=== PATIENT | female | born 1955 | race Caucasian/White ===

== ENCOUNTER → 2019-04-27 | Outpatient (CLI) | payer MEDICARE ==
--- NOTE | 2019-05-06 12:06 | PATH ---
[address] [address] PATHOLOGY RPT PROCEDURE Name: MARIO RASHID Room: [facility].#: [id number] Admission: 04/27/19 Date of : 51 Discharge: Report #: [id number] Path Case #: [id number] [facility] Accession Number: [id number] . 01 Material submitted: . PART A: breast - LEFT BREAST, 3:00, 1CMFN. Modifiers: left, 3:00 PART B: lymph node - LEFT AXILLA NODE. Modifiers: left, axilla . 01 Clinical history: . A. 3.61 x 4.89 x 1.29 cm, 300 1cm from nipple B. 2.03 x 1.53 x 1.09 cm, cortical thickness .41cm . 02 Diagnosis: A. 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 SEE COMMENT. . B. Left axillary node, image-guided core biopsy: - HIGH-GRADE ADENOCARCINOMA TYPICAL OF BREAST DUCTAL PRIMARY, SPANNING 13 MM, INVOLVING LYMPH NODE. SEE COMMENT. . (RON:packing and shipping clerk; 04/29/2019) MBR 04/29/2019 1046 Local . 02 Comment: Specimen type: Image-guided core biopsy Tumor site: Left breast, 3:00, 1 cm from nipple Tumor quantitation: Approximately 80% of submitted tissues Histologic type: Ductal adenocarcinoma Histologic grade: III of III Tubules, nuclei and mitoses: 3, 3, 2 LVSI: Identified Microcalcifications: Identified in non-neoplastic tissue Markers: Breast tumor profile pending Block: A1 . No DCIS or LCIS is identified in specimen A. Adenocarcinoma involves approximately 95% of all submitted tissues from the left axillary node (B), with minimal residual non-neoplastic lymph node present. Breast tumor profile studies are pending and will be the subject of an addendum report. Specimens A and B reviewed with Dr. Gerardo Ac who agrees with the diagnoses. Christine Garcia ([facility] breast navigator) notified at approximately 1040 on 04/29/2019. . (RON:nikolas; 04/29/2019) . 02 Addendum: . Special studies report received from [facility], [facility] [place] [address] PATHOLOGY RPT PROCEDURE Name: MARIO RASHID Room: [facility]#: [id number] Admission: 04/27/19 Date of : 51 Discharge: Report #: [id number] Path Case #: [id number] Wong Connors [address] [place] [address], [address], on case [id number], labeled with their number [id number], dated 05/05/2019. . Breast/Prognostic Marker Analysis . Specimen Site: Lt Breast, Breast cancer. Specimen ID #: [id number] . ER (Estrogen Receptor) Present/Positive Percent: 70.00% Analysis: Manual Comments: Staining Intensity: Strong . DC (Progesterone Receptor) Less than 1%/Negative. Analysis: Manual . HER2 Equivocal Score: 2+ Analysis: Manual Reference Range . Ki-67 High Proliferation Percent: 40.00% Analysis: Manual . Type of Fixative: 10% Neutral Buffered Formalin . at [facility]. Jai Chu MD Surgical Pathologist . . Methodology The HER2 Receptor protein expression is analyzed using the [place] HER2 rabbit monoclonal antibody (clone [id number]). This assay is used for diagnostic determination of the HER2 protein over-expression in paraffin embedded, formalin fixed breast cancer tissue on the [place] Benchmark. The specimen is processed using a secondary antibody-HRP conjugate detection system. The membrane staining of the tumor is determined either by manual score or image analysis. This antibody is intended for in vitro diagnostic use. The score is reported as 0, 1+, 2+, or 3+. This test is used for clinical purposes. . A rabbit monoclonal antibody (clone SP1) [place] [address] PATHOLOGY RPT PROCEDURE Name: MARIO RASHID Room: [id number] Admission: 04/27/19 Date of : 51 Discharge: Report #: [id number] Path Case #: [id number] Receptor is used to perform immunohistochemistry on routinely fixed (formalin) paraffin embedded tissue on the [place] Benchmark. The specimen is processed using a secondary antibody-HRP conjugate detection system. The percentage of stained tumor nuclei is determined either manually or by image analysis. This test is intended for in vitro diagnostic use. This test is used for clinical purposes. . A rabbit monoclonal antibody (clone 1E2) that recognized the Progesterone Receptor is used to perform immunohistochemistry on routinely fixed (formalin) paraffin embedded tissue on the [place] Benchmark. The specimen is processed using a secondary antibody-HRP conjugate detection system. The percentage of stained tumor nuclei is determined either manually or by image analysis. This test is intended for in vitro diagnostic use. This test is used for clinical purposes. . A rabbit monoclonal antibody (clone 30-9) that recognized Ki67 is used to perform immunohistochemistry on routinely fixed (formalin) paraffin embedded tissue on the [place] Benchmark. The specimen is processed using a secondary antibody-HRP conjugate detection system. The percentage of stained tumor nuclei is determined either manually or by image analysis. This test is intended for in vitro diagnostic use. This test is used for clinical purposes. . Intended Use: This antibody is intended for in vitro diagnostic (IVD) use. HER2 (4B5) is a rabbit monoclonal antibody intended for the semi-quantitative detection of HER2 antigen in sections of formalin-fixed, paraffin embedded normal and neoplastic tissue. . This antibody is intended for in vitro diagnostic (IVD) use. Estrogen Receptor (ER) (SP1) is a rabbit monoclonal antibody (IgG) that is intended for the qualitative detection of estrogen receptor (ER) antigen in sections of formalin-fixed, paraffin-embedded tissue. ER is a rabbit monoclonal antibody that recognizes human estrogen receptor alpha. . This antibody is intended for in vitro diagnostic (IVD) use. Progesterone Receptor (DC) (1E2) is a rabbit monoclonal antibody (IgG) that is intended for the qualitative detection of progesterone receptor (DC) antigen in sections of formalin fixed, paraffin embedded tissue. DC is a rabbit monoclonal antibody that recognizes the A and B forms of the human progesterone receptor. . This antibody is intended for in vitro diagnostic (IVD) use. Ki-67 (30-9) is a rabbit monoclonal antibody (IgG) directed against C-terminal portion of Ki-67 antigen. Staining for Ki-67 can be used to aid in assessing the proliferative activity of normal and neoplastic tissue. Ki-67 is a nuclear protein expressed in proliferating cells. During the cell cycle, the Ki-67 antigen is present in the G1, S, G2 and M phase but is absent in the G0 (quiescent [place]). [place] [address] PATHOLOGY RPT PROCEDURE Name: MARIO RASHID Room: [facility]#: [id number] Admission: 04/27/19 Date of : 51 Discharge: Report #: [id number] Path Case #: [id number] . . Disclaimer: This Test was performed by [facility] at [address], [address]. . [facility] is a business unit of [employer] a wholly-owned subsidiary of [employer]. . This assay has not been validated on decalcified tissues. Results should be interpreted with caution if this specimen was decalcified given the likelihood of false negativity on decalcified specimens. . Any image(s) that accompany this report is/are a medical claims representative image(s) only and should not be used to render a diagnosis. . This interpretation is contingent on the specimen and the clinical information received. . For any special tests/stains performed, known positive cells or tissues are tested with each marker and examined to ensure positivity. Positive and negative internal controls, if present, react appropriately. . This analysis is an adjunct to the evaluation of the referring physician and does not represent a final diagnosis. . The immunohistochemistry tests performed at [facility] were validated on tissue fixed in 10% neutral buffered formalin. The performance characteristics of the tests performed on tissue processed in other fixatives is not known. . HER2 testing at [facility] is performed in compliance with the 2018 updated ASCO/CAP Clinical Practice Guideline Focused Update. If the result is EQUIVOCAL (2+), it must be confirmed by an alternative assay such as FISH or Dual HARJIT. . REF: Brii SINCLAIR, ANANT Lester et al: Human Epidermal Growth Factor Receptor 2 Testing in Breast Cancer: ASCO/CAP Clinical Practice Guideline Focused Update. J Clin Oncol 36:4209-8013, 2018. . HER2 and ER/DC ASCO/CAP guidelines require fixation in neutral buffered formalin for a minimum of 6 and a maximum of 72 hours. Fixation times less than 6 hours may not adequately preserve cell proteins. Fixation times longer than 72 hours may cause excess cross-linking of proteins reducing the antigen available for staining. Either scenario can cause reduced staining; hence false negative results are possible and should be considered for these situations if the HER2 IHC score is less than 3+ or ER or DC is negative (no staining or <1% positive). [place] [address] PATHOLOGY RPT PROCEDURE Name: MARIO RASHID Room: [facility]#: [id number] Admission: 04/27/19 Date of : 51 Discharge: Report #: [id number] Path Case #: [id number] specimens fixed longer than 72 hours with HER2 IHC scores less than 3+ be confirmed by HER2 FISH or Dual HARJIT. The time from biopsy/excision to fixation in formalin (cold ischemic time) must be less than 1 hour. Time to fixation (cold ischemic time) greater than 1 hour should be interpreted with caution. HER2 testing, mainly HER2 by FISH, is particularly vulnerable since excessive cold ischemic time results in preferential loss of HER2 probe signals that may lead to false negative results. . SCORE STAINING PATTERN IN TUMOR CELLS INTERPRETATION RESULTS 0 No staining observed or incomplete, faint membrane staining in less than or equal to 10% of tumor cells. Negative 1+ Incomplete, faint membrane staining in greater than 10% of tumor cells. Negative 2+ Weak to moderate complete membrane staining observed in greater than 10% of tumor cells. Equivocal* *Must be confirmed by alternative assay (IHC/FISH/Dual HARJIT) 3+ Intense, complete membrane staining in greater than 10% of tumor cells. Positive . A complete copy of the report is on file. . Professional and Technical services performed by [facility] [employer]. at [address] [address]. . (RON:amj 05/06/2019) . MBR/05/06/2019 Addendum Electronically Signed by Elliott Barroso MD, Pathologist . 02 Electronically signed: . Elliott Barroso MD, Pathologist NPI- [id number] . 01 Gross description: . A. Received in formalin labeled "Mario Rashid, left breast 300 1cmFN," are three needle cores of yellow-monte fibrofatty tissue measuring 1.7 x 0.6 x 0.2 cm in aggregate dimensions. The specimen is submitted entirely in cassettes A1 through A3. The cold ischemic time is six minutes. The total formalin fixation time is 28 hours and 19 minutes. . B. Received in formalin labeled "Mario Rashid, left axillary node," are six needle core fragments of ansari-brown soft tissue ranging from 0.2 to 1.7 [place] [address] PATHOLOGY RPT PROCEDURE Name: MARIO RASHID Room: [facility]#: [id number] Admission: 04/27/19 Date of : 51 Discharge: Report #: [id number] Path Case #: [id number] cm in length and measuring 0.1 cm each in diameter. The specimen is submitted entirely in cassettes B1 through B3. ([facility]; 04/28/2019) XDC/XSC 04/28/[address] [place] [address] . Pathologist provided ICD-10: C50.912, C77.3 . 02 CPT . 256313, 890232 Specimen Comment: A courtesy copy of this report has been sent to Specimen Comment: [phone], , , . Specimen Comment: Report sent to ,DR KHALIL,DR CHÁVEZ / DR WINTERS Performed at: [address], [place], [place] [id number] MD Messi Hodges MD Phone: [phone] Performed at: [address] [address] [address], [place], [place] [id number] MD Elliott Barroso MD Phone: [phone]
== END | disposition home or self-care (01) ==
LOC: M.ULTRA 12:29
DX: N63.20 Unspecified lump in the left breast, unspecified quadrant (principal); C50.912 Malignant neoplasm of unspecified site of left female breast; C77.3 Secondary and unspecified malignant neoplasm of axilla and upper limb lymph nodes

== ENCOUNTER → 2019-05-13 | Outpatient (CLI) | payer MEDICARE ==
[~2019-05-13] MED LIST: MULTIPLE VITAM1 EAC2 PO; SYNTHROID100 MC1 PO
[2019-05-13 11:04] LABS: ALBUMIN 4.1 g/dL (3.4-5.0); CREATININE 0.7 mg/dL (0.6-1.3); DIRECT BILIRUBIN 0.1 mg/dL (<0.1-0.3); TOTAL BILIRUBIN 0.3 mg/dL (<0.1-1.0); TOTAL PROTEIN 7.9 g/dL (6.4-8.2)
== END ==
LOC: M.LAB 10:19 → M.MRI 11:30
PROVIDERS: Surgery
DX: C50.412 Malignant neoplasm of upper-outer quadrant of left female breast (principal)

== ENCOUNTER → 2019-05-17 | Outpatient (CLI) | payer MEDICARE ==
--- NOTE | 2019-05-17 11:28 | 2DMMODE ---
[place] [address] 2 D/M-MODE ECHOCARDIOGRAM Name: MARIO RASHID Room: [facility]#: [id number] Admission: 05/17/19 Attend Phys: Fabrizio Taveras MD Discharge: Date of : 51 Date of Service: 05/17/19 1128 Report #: [id number] THIS REPORT FOR: //name// APPROVED REPORT Study performed: 05/17/2019 08:58:27 EXAM: Comprehensive 2D, Doppler, and color-flow Echocardiogram Patient Location: Out-Patient BSA: 1.56 HR: 84 bpm BP: 130/70 mmHg Other Information Study Quality: Good Indications Chemo 2D Dimensions IVSd: 10.26 (7-11mm) LVOT Diam: 20.05 (18-24mm) LVDd: 45.82 mm PWd: 9.42 (7-11mm) Ascending Ao: 30.47 (22-36mm) LVDs: 28.65 (25-40mm) Aortic Root: 23.45 mm Volumes Left Atrial Volume (Systole) LA ESV Index: 13.70 mL/m2 Aortic Valve AoV Peak Crow.: 1.09 m/s AO Peak Gr.: 4.73 mmHg LVOT Max P.54 mmHg AO Mean Gr.: 2.46 mmHg LVOT Mean P.65 mmHg LVOT Max V: 0.94 m/s AO V2 VTI: 18.21 cm LVOT Mean V: 0.58 m/s LANG (VTI): 3.14 cm2 LVOT V1 VTI: 18.08 cm Mitral Valve E/A Ratio: 1.25 MV Decel. Time: 196.83 ms MV E Max Crow.: 0.61 m/s MV PHT: 57.08 ms MVA (PHT): 3.85 [place] [address] 2 D/M-MODE ECHOCARDIOGRAM Name: MARIO RASHID Room: [facility]#: [id number] Admission: 05/17/19 Attend Phys: Fabrizio Taveras MD Discharge: Date of : 51 Date of Service: 05/17/19 1128 Report #: [id number] TDI E/Lateral E': 5.55 E/Medial E': 5.55 Medial E' Crow.: 0.11 m/s Lateral E' Crow.: 0.11 m/s Pulmonary Valve PV Peak Crow.: 0.83 m/s PV Peak Gr.: 2.74 mmHg Tricuspid Valve RAP Estimate: 5.00 mmHg TR Peak Gr.: 21.34 mmHg RVSP: 26.34 mmHg PA Pressure: 26.34 mmHg Left Ventricle The left ventricle is normal size. There is normal LV segmental wall motion. There is normal left ventricular wall thickness. Left ventricular systolic function is normal. LVEF is 55-60%. The left ventricular diastolic function is normal. Right Ventricle The right ventricle is normal size. The right ventricular systolic function is normal. Atria The left atrium size is normal. The right atrium size is normal. Aortic Valve The aortic valve is normal in structure. No aortic regurgitation is present. There is no aortic valvular stenosis. Mitral Valve The mitral valve is normal in structure. There is no mitral valve regurgitation noted. No evidence of mitral valve stenosis. Tricuspid Valve The tricuspid valve is normal in structure. Trace tricuspid regurgitation. No pulmonary hypertension. Pulmonic Valve The pulmonary valve is normal in structure. There is no pulmonic valvular regurgitation. Great Vessels The aortic root is normal in size. IVC [place] [address] 2 D/M-MODE ECHOCARDIOGRAM Name: MARIO RASHID Room: [facility]#: [id number] Admission: 05/17/19 Attend Phys: Fabrizio Taveras MD Discharge: Date of : 51 Date of Service: 05/17/19 1128 Report #: [id number] collapses >50% with inspiration. Pericardium There is no pericardial effusion. <Conclusion> The left ventricle is normal size. There is normal left ventricular wall thickness. Left ventricular systolic function is normal. LVEF is 55-60%. The left ventricular diastolic function is normal. There is normal LV segmental wall motion. Trace tricuspid regurgitation. No pulmonary hypertension. IVC is normal in size and collapses >50% with inspiration. The GLS (Global Longitudnal Strain) is -17.56% <ELECTRONICALLY SIGNED> By: Alan Cosby MD, FACC 05/17/19 1128 1128 1128 Alan Cosby MD, FACC /INF
== END ==
LOC: M.CT 08:03 → M.CRD 09:00
DX: C50.919 Malignant neoplasm of unspecified site of unspecified female breast (principal); N63.11 Unspecified lump in the right breast, upper outer quadrant; J43.9 Emphysema, unspecified

== ENCOUNTER → 2019-05-19 | Day surgery (SDC) | payer MEDICARE ==
[2019-05-19 08:29] LABS: HEMATOCRIT 40.5 % (37.0-47.0); HEMOGLOBIN 13.8 gm/dL (12.0-15.0); MCH 34.4 pg (26.0-34.0); MCV 101.2 fL (80.0-100.0); MPV 6.5 fl. (7.2-11.1); RBC 4.01 mil/uL (4.20-5.00); WBC 9.2 thou/uL (4.0-11.0)
[2019-05-19 08:32] LABS: CALCIUM 8.9 mg/dL (8.5-10.1); CREATININE 0.7 mg/dL (0.6-1.3)
[2019-05-19 08:37] LABS: ALBUMIN 3.8 g/dL (3.4-5.0); TOTAL BILIRUBIN 0.3 mg/dL (<0.1-1.0); TOTAL PROTEIN 7.3 g/dL (6.4-8.2)
--- NOTE | 2019-05-19 10:38 | EKG ---
[place] [address] ELECTROCARDIOGRAM REPORT Name: MARIO RASHID Room: [facility]#: [id number] Admission: 05/19/19 Attend Phys: Jeanie Navarro DO Discharge: Date of : 51 Report #: [id number] THIS REPORT FOR: //name// [facility] Test Date: 2019-05-19 Test Time: 07:59:49 Pat Name: MARIO RASHID Department: Room: Gender: F Information Support Project Manager: RT : 1955 Requested By: Jeanie Navarro Order Number: [id number] Kelly MD: Mic Hinkle Measurements Intervals [place] Rate: 80 P: 62 SC: 135 QRS: 53 QRSD: 94 T: 63 QT: 390 QTc: 450 Interpretive Statements Sinus rhythm RSR' in V1 or V2, right VCD or RVH Baseline wander in lead(s) V5 No previous ECG available for comparison Electronically Signed On 05-19-2019 10:37:56 CDT by Mic Hinkle [email or web address] <ELECTRONICALLY SIGNED> By: Mic Hinkle MD, [facility] 05/19/19 [facility] [id number] Mic Hinkle MD, FACC /EPI
--- NOTE | 2019-05-25 08:51 | OP ---
[address] [address] OPERATIVE REPORT Name: MARIO RASHID Room: [facility]..#: [id number] Admission: 05/19/19 Attend Phys: Jeanie Navarro DO Discharge: Date of : 51 Report #: [id number] THIS REPORT FOR: //name// CC: Matt Krause DO DICTATED BY: Diego Tejada DO DATE OF SERVICE: 05/19/2019 PREOPERATIVE DIAGNOSIS: Left breast cancer. POSTOPERATIVE DIAGNOSIS: Left breast cancer. PROCEDURE PERFORMED: Right internal jugular ultrasound and fluoroscopy-guided chemo port placement with surgeon's interpretation of images. SURGEON: Jeanie Navarro DO CO-SURGEON: Diego Tejada DO, PGY-3 RN LAB: [facility] ANESTHESIA: General and local. ESTIMATED BLOOD LOSS: 5. SPECIMENS REMOVED: None. IMPLANT: 8-Azeri Groshong Bard chemo port. HISTORY OF PRESENT ILLNESS: The patient is a 64-year-old female with history of infiltrating ductal carcinoma of the left breast. She has plans for chemotherapy and needs the chemo port. Risks, benefits and alternatives were discussed to include bleeding, infection, injury to surrounding structures and risk of anesthesia. She acknowledged her understanding and agreed to proceed with surgery. DESCRIPTION OF PROCEDURE: After consent was obtained, the patient was taken to the operating room and placed in the supine position. SCDs applied to bilateral lower extremities, safety belt placed across the patient's waist. Antibiotics were given for surgical prophylaxis. General anesthesia was then administered without any complication. The patient was prepped and draped in the standard sterile fashion. It was elected to utilize the right internal jugular vein for [address] [address] OPERATIVE REPORT Name: MARIO RASHID Room: [facility]..#: [id number] Admission: 05/19/19 Attend Phys: Jeanie Navarro, DO Discharge: Date of : 51 Report #: [id number] access as her cancer was on the left side. Jugular vein was identified using an ultrasound that could be seen easily compressible with the artery just medial to it. A timeout was performed to confirm the patient, procedure. An introducer needle was introduced into the right IJ under ultrasound guidance. Venous blood return was noted. A wire was passed with ease. A site for the port placement was determined to be just underneath the right clavicle on the right chest. A #15 blade scalpel was used to make a transverse incision. Electrocautery was used to dissect down to the level of the muscle fascia. Once the muscle fascia was encountered, a small pocket was created using blunt dissection with finger. Once the pocket was created, a #11 blade scalpel was used to make an incision just near the wire in the right neck. Dilator was placed over the wire. The wire and the catheter were removed and the chemo port catheter itself was placed into the dilator. At this point, a dilator was snapped off and removed, leaving the catheter in place. Fluoroscopy was taken and the tip of the chemo port catheter was seen to be in the superior vena cava just above the level of the heart. At this point, the chemo port was placed into the pocket. Two stitches of 0 Prolene were used to secure the port place. The tip of the chemo port catheter was attached to a tunneler and the tunneler was used to go from the right neck incision over to the right chest pocket that was created. The catheter tunneled with ease, it was cut and attached to the chemo port. The chemo port was then aspirated with good venous return and flushed with sterile normal saline. A 3 mL of premixed heparin solution was injected. One more shot of fluoro was used to ensure that the catheter was in correct position and there were no kinks in the catheter and the tip was seen in the superior vena cava just below the heart indicating good position. The subcutaneous tissue was then closed with 3-0 Vicryl and all skin incisions were closed with 4-0 Monocryl. Sterile dressings applied over top. All counts were correct at the end of the case. The patient tolerated the procedure well and was sent to PACU in stable condition. Postoperative chest x-ray was obtained and revealed the catheter in correct position, tip in the SVC just above the level of the heart, no complications. <ELECTRONICALLY SIGNED> By: Jeanie Navarro DO 05/25/19 0851 0951 1032Cadriana Navarro DO /nt
== END | disposition home or self-care (01) ==
LOC: M.SUR
PROVIDERS: Surgery
DX: C50.912 Malignant neoplasm of unspecified site of left female breast (principal); Z79.899 Other long term (current) drug therapy; Z88.8 Allergy status to other drugs, medicaments and biological substances

== ENCOUNTER → 2019-11-11 | Day surgery (SDC) | payer MEDICARE, OTHER, MEDICAID ==
[~2019-11-11] MED LIST changes: +ULTRAM 50MG TAB50 MG PO
[2019-11-11 07:06] LABS: HEMATOCRIT 38.9 % (37.0-47.0); HEMOGLOBIN 13.6 gm/dL (12.0-15.0); MCH 34.2 pg (26.0-34.0); MCV 97.8 fL (80.0-100.0); MPV 6.2 fl. (7.2-11.1); RBC 3.98 mil/uL (4.20-5.00); RDW-CV 13.5 % (10.5-14.5); WBC 8.6 thou/uL (4.0-11.0)
[2019-11-11 07:13] LABS: CALCIUM 9.2 mg/dL (8.5-10.1); CREATININE 0.6 mg/dL (0.6-1.3)
--- NOTE | 2019-11-11 12:56 | OP ---
[address] [address] OPERATIVE REPORT Name: MARIO RASHID Room: [facility]..#: [id number] Admission: 11/11/19 Attend Phys: Jeanie Navarro DO Discharge: Date of : 51 Report #: [id number] THIS REPORT FOR: //name// cc: Matt Fernando Brad DO ~ THIS REPORT FOR: //name// CC: Matt Dinh Nitin DATE OF SERVICE: 11/11/2019 PREPROCEDURE DIAGNOSIS: Left breast cancer, status post neoadjuvant chemotherapy. POSTOPERATIVE DIAGNOSIS: Left breast cancer, status post neoadjuvant chemotherapy. FINDINGS: Palpable left breast mass at 3 o'clock. Port in the right jugular vein. [place] lymph node was positive for metastatic cancer on frozen. Uptake at the nipple with a Neoprobe was 11,500. Uptake on sentinel lymph node #1 was 850, sentinel lymph node #2 was 500, sentinel lymph node #3 was 375. SURGEON: Jeanie Navarro DO CO-SURGEON: Luis A Ng, PGY-5 SKI PATROL: None. PROCEDURES PERFORMED: Left breast lumpectomy, left superficial sentinel lymph node dissection converted to full axillary lymph node dissection, removal of right internal jugular chemo port. ANESTHESIA: General LMA and local. ESTIMATED BLOOD LOSS: 20. SPECIMENS: Left breast mass, left sentinel lymph nodes x 3, axillary node dissection. Port was removed, but was not sent to pathology. COMPLICATIONS: None. CONDITION: Stable. DISPOSITION: PACU to home. [address] [address] OPERATIVE REPORT Name: MARIO RASHID Room: [facility].#: [id number] Admission: 11/11/19 Attend Phys: Jeanie Navarro DO Discharge: Date of : 51 Report #: [id number] HISTORY OF PRESENT ILLNESS: The patient is a very pleasant 64-year-old female who is well known to me from her previous diagnosis of left breast cancer. She had initially undergone an ultrasound-guided biopsy of the left breast in the axilla, both of which were positive for breast cancer. She underwent placement of a port and underwent chemotherapy, which she completed at chemotherapy. She returned to my care for surgical planning. Medical Oncology indicated that there would be no further chemotherapy postop, so we planned for a left breast lumpectomy, left sentinel lymph node dissection with pathology for frozen sections with possibility of full axillary lymph node dissection and removal of the chemo port. Risks were discussed to include bleeding, infection, pain, scar formation, deformation of the breast, need for further surgery; chronic pain, numbness or swelling; injury to nerves, arteries or veins and risks of general anesthesia. The patient understood these risks and elected to proceed. DESCRIPTION OF PROCEDURE: The patient initially presented to preop and was then taken to Radiology where she underwent nuclear medicine injection in the left breast. She then returned to preop where she underwent informed consent. She was then taken to the operating room where she was laid supine on the operating room table. SCDs were placed on bilateral lower extremities. Ancef was given in the perioperative period. General LMA anesthesia was induced by Anesthesia without difficulty. The 5 mL of Lymphazurin blue dye were then injected in the left periareolar area. Chest, axilla were all prepped and draped in the standard sterile fashion. Timeout was performed to verify the patient and procedure. We began with the left breast mass. There was at least a 2 cm palpable mass at around 3 o'clock of the left breast. An elliptical incision was marked out in this area. A 10 mL of 0.5% Marcaine were injected at the planned incision. Elliptical incision over the mass was then created with #15 blade including a portion of the skin. Cautery was used for hemostasis. Cautery was then used to create a lumpectomy specimen around the palpable mass. Depth of dissection was all the way down to the pectoralis fascia. Specimen was then marked in the superior and lateral direction and was sent to Radiology to make sure that we had obtained the clip. While the specimen was in Radiology, the cavity was copiously irrigated until clear and hemostasis was assured. Radiologist did return a phone call indicating that we had obtained the clip and the mass. A moistened Ray-Francisca was then placed within that cavity. Neoprobe was then brought onto the field and the nipple was interrogated. Highest uptake was approximately 11,500. Axilla was also interrogated and we had excellent uptake. A 10 mL of 0.5% Marcaine were injected in the area of her planned incision in the axilla. Incision was made with #15 blade. Cautery was used for hemostasis. Cautery was then used to dissect down through the subcutaneous tissues. A Weitlaner retractor was placed within the wound. Then, using the Neoprobe and the blue dye for guidance, we dissected gently down into the axilla. Almost immediately inferior to the clavipectoral fascia, a large blue lymphatic was identified and was easily traced to a blue lymph node. Uptake in this area was approximately 850. This area was gently grasped using an Allis clamp and was [facility] [address] [place] [address] OPERATIVE REPORT Name: MARIO RASHID Room: [facility]#: [id number] Admission: 11/11/19 Attend Phys: Jeanie Navarro DO Discharge: Date of : 51 Report #: [id number] elevated out of the axilla. There were actually 2 lymph nodes in this area, one which was clearly blue and had an uptake of 850 and a second which had uptake of approximately 500. The first was dissected out and was handed off to Dr. Barroso, the pathologist, for frozen section. The second was also dissected out. Again, the uptake here was approximately 500. This was labeled as sentinel lymph node #2. Neoprobe was returned into the field and there was an additional third lymph node with uptake of approximately 375. This was also gently dissected and was handed off as sentinel lymph node #3. At this point, Dr. Barroso did return to the operating room to report that there were findings of metastatic cancer within her sentinel lymph node. At this point, we then converted to a full axillary lymph node dissection. Allis clamp was placed on the axillary tissue. The axillary tissue was gently elevated out of the axilla. We began by first clearing off the chest wall. This was accomplished using very gentle blunt dissection with finger until we clearly reached the level of the axillary vein. The superior portion of the axilla was then cleared from the inferior aspect of the pectoralis fascia and was also traced all the way to the axillary vein. Lateral dissection was taken from the subcutaneous tissues, again all the way to the lateral aspect of the axillary vein. A large nerve, which may have been a long thoracic, was identified during our dissection and was protected. Several small vessels were identified while we were working and were doubly clipped and ligated. Once the entirety of the axillary tissue was taken from the subclavian vein, it was then completely skeletonized. Axillary tissue was marked in the superior and lateral direction and was handed off for permanent pathology. Axilla was copiously irrigated until clear. Hemostasis was assured. Area was palpated and there were no further palpable lymph nodes. FloSeal was introduced into this wound. A 14-English SAHIL drain was also then placed. This area was then also covered with a lap pad while we turned our attention to the right chemo port. A 10 mL of 0.5% Marcaine were injected in the area of the previous chemo port incision. Incision was reopened using a #15 blade. Cautery was used for hemostasis. Metzenbaum dissection was then carried down until the port was identified. The 2 stitches were removed. Gentle pressure was then held on the right internal jugular and the port was completely explanted. Port was carefully inspected and was intact. It was then handed off, but will not be sent for pathology. Hemostasis was assured within this wound. All of our wounds were then closed in a layered fashion using 3-0 Vicryl in inverted interrupted fashion moving from deep to superficial. All wounds were then closed with 4-0 Monocryl. Drain was sutured into place using a 3-0 nylon. A total of 50 mL of 0.5% Marcaine were used to anesthetize the wounds. Wounds were all then cleansed and covered with Mastisol, Steri-Strips, 4 x 4s, and a Tegaderm. Drain was covered with a 4 x 4 and a Tegaderm. Surgical bra was placed in the operating room. The patient was [place] [address] OPERATIVE REPORT Name: MARIO RASHID [facility] [id number] Admission: 11/11/19 Attend Phys: Jeanie Navarro DO Discharge: Date of : 51 Report #: [id number] anesthesia, was extubated and transported to the recovery room with no further difficulties. Counts were correct x 2 at the conclusion of the case. <ELECTRONICALLY SIGNED> By: Jeanie Navarro DO 11/11/19 1256 1213 1239Chsegun Navarro DO /nt
--- NOTE | 2019-11-15 15:07 | PATH ---
[place] [address] PATHOLOGY RPT PROCEDURE Name: MARIO RASHID Room: [facility].#: [id number] Admission: 11/11/19 Date of : 51 Discharge: Report #: [id number] Path Case #: [id number] LCA Accession Number: [id number] . 01 Material submitted: . PART A: axillary tail of breast - LEFT AXILLARY SLN #1 FS. Modifiers: left PART B: breast - LEFT BREAST MASS. Modifiers: left PART C: lymph node - LEFT AXILLARY SLN #2. Modifiers: left PART D: lymph node - LEFT AXILLARY SLN #3. Modifiers: left PART E: axilla - LEFT AXILLA . 01 Clinical history: . Metastatic breast cancer. . 02 Frozen section diagnosis: . FROZEN SECTION INTRAOPERATIVE CONSULTATION (AND TOUCH PREP) (Elliott Barroso MD) . A. Left axillary SLN #1, hot, blue: - METASTATIC ADENOCARCINOMA INVOLVING LYMPH NODE. . Results are relayed to Dr. Navarro in the operating room and a note is entered into the medical record. . Frozen section and touch prep performed at [facility], [address] [place] [address]. . . GROSS DESCRIPTION A. Specimen A is received fresh from the operating room accompanied by a label marked, "Mario Rashid, left axillary SLN #1, hot, blue" and consists of a segment of fatty tissue measuring 3 x 2.[address] Navarro requests intraoperative evaluation for the possibility of residual malignancy. The fatty tissues are dissected away resulting in a smooth nodule with faint blue staining which measures 2 x 1.3 x 0.7 cm. The nodule is bisected, a touch prep prepared and both halves submitted for frozen studies with the remainder of that tissue frozen submitted in cassette A1. All of the remainder of the specimen is submitted in cassette A2. (RON:marquita; 11/11/2019) BSM/QMS . 02 Diagnosis: A. Left axillary sentinel lymph node #1 (FS): - ONE LYMPH NODE WITH METASTATIC ADENOCARCINOMA TYPICAL OF BREAST PRIMARY, SPANNING 20 MM, WITH EXTRANODAL EXTENSION (08/18). SEE COMMENT. . B. Left breast mass: - INFILTRATING DUCTAL ADENOCARCINOMA, HIGH GRADE, SPANNING 25 MM, [place] [address] PATHOLOGY RPT PROCEDURE Name: MARIO RASHID Room: [facility] M.R.#: [id number] Admission: 11/11/19 Date of : 51 Discharge: Report #: [id number] Path Case #: [id number] ASSOCIATED WITH BIOPSY CLIP, WITH ALL SURGICAL MARGINS FREE OF INVOLVEMENT AND CLOSEST (ANTERIOR), 1.2 MM AWAY. SEE COMMENT. . C. Left axillary sentinel lymph node #2: - ONE LYMPH NODE WITH METASTATIC ADENOCARCINOMA, SPANNING 6 MM, WITH EXTRANODAL EXTENSION (1/1). SEE COMMENT. . D. Left axillary sentinel lymph node #3: - One benign lymph node (0/1). See comment. . E. Left axilla: - SIX OF EIGHT LYMPH NODES WITH METASTATIC ADENOCARCINOMA TYPICAL OF BREAST DUCTAL PRIMARY (6/8). SEE COMMENT. . (RON/marquita; 11/15/2019) [facility] 11/15/2019 1127 Local . 02 Comment: Surgical Pathology Cancer Case Summary . Protocol posting date: September 2019 . INVASIVE CARCINOMA OF THE BREAST: Resection . Procedure ___ Excision (less than total mastectomy) . Specimen Laterality ___ Left . + Tumor Site + ___ Not specified . Tumor Size ___ Greatest dimension of largest invasive focus >1 mm: 25 mm . Histologic Type ___ Invasive carcinoma of no special type (ductal) . Histologic Grade ([place] Histologic Score) . Glandular (Acinar)/Tubular Differentiation ___ Score 3 (<10% of tumor area forming glandular/tubular structures) . Nuclear Pleomorphism ___ Score 3 (vesicular nuclei, often with prominent nucleoli, exhibiting marked variation in size and shape, occasionally with very large and bizarre forms) [address] [address] PATHOLOGY RPT PROCEDURE Name: MARIO RASHID Room: [facility] Zander.Whitney.#: [id number] Admission: 11/11/19 Date of : 51 Discharge: Report #: [id number] Path Case #: [id number] . Mitotic Rate ___ Score 3 . Overall Grade ___ Grade 3 (scores of 8 or 9) . + Tumor Focality + ___ Single focus of invasive carcinoma . Ductal Carcinoma In Situ (DCIS) ___ Not identified . + Lobular Carcinoma In Situ (LCIS) + ___ Not identified . Tumor Extension . Skin ___ Skin is present and uninvolved . Skeletal Muscle ___ No skeletal muscle is present . Margins . Invasive Carcinoma Margins ___ Uninvolved by invasive carcinoma Distance from closest margin: 1.2 mm . + Specify closest margin: Anterior . + Distance from other margins: + ___ Posterior: 0.1 mm . Regional Lymph Nodes ___ Involved by tumor cells Number of Lymph Nodes with Macrometastases (>2 mm): 8 Number of Lymph Nodes with Micrometastases (>0.2 mm to 2 mm and/or >200 cells): 0 . Size of Largest Metastatic Deposit: 20 mm . Extranodal Extension ___ Present + Extent of extranodal extension +___ >2mm . Total Number of Lymph Nodes Examined: [address] [place] [address] PATHOLOGY RPT PROCEDURE Name: MARIO RASHID Room: [facility]#: [id number] Admission: 11/11/19 Date of : 51 Discharge: Report #: [id number] Path Case #: [id number] Number of [place] Nodes Examined: 3 . Treatment Effect in the Breast ___ No definite response to presurgical therapy in the invasive carcinoma . Treatment Effect in the Lymph Nodes ___ No definite response to presurgical therapy in metastatic carcinoma . + Lymphovascular Invasion + ___ Present . + Dermal Lymphovascular Invasion + ___ Not identified . . PATHOLOGIC STAGE CLASSIFICATION (pTNM, AJCC 8th EDITION) . TNM Descriptors ___ y (posttreatment) . Primary Tumor (pT) ___ pT2: Tumor greater than 20 mm but less than or equal to 50 mm in greatest dimension . Regional Lymph Nodes (pN) ___ pN2a: Metastases in 4 to 9 axillary lymph nodes (at least 1 tumor deposit larger than 2.0 mm)## . + Additional Pathologic Findings + Specify: Medial calcification of blood vessels . + Ancillary Studies . + ___ Breast Biomarker Testing Performed on Previous Biopsy + Testing Performed on . + Estrogen Receptor (ER) + ___ Positive 70% . + Progesterone Receptor (PgR) + ___ Negative . + HER2 (by immunohistochemistry) + ___ Equivocal (Score 2+) . + HER2 (by in situ hybridization) + ___ Negative (not amplified) . + ___ Ki-67 percentage of positive nuclei: 40% [address] [address] PATHOLOGY RPT PROCEDURE Name: MARIO RASHID Room: [facility] M.R.#: [id number] Admission: 11/11/19 Date of : 51 Discharge: Report #: [id number] Path Case #: [id number] . + Microcalcifications + ___ Present in non-neoplastic tissue . . Fibrosis of non-neoplastic breast tissue around the tumor is present but there is no definite response to therapy. Review of Dr. Navarro's operative report dated 11/11/2019 reveals the patient to have received chemotherapy after the breast biopsy previously performed. The tumor most closely approaches the anterior margin (1.2 mm away) in B10 and the posterior margin (2.1 mm away) in B8. A properly controlled keratin AE1/AE3 stain performed on the left axillary sentinel lymph node #3 (D) is negative. (RON:marquita; 11/15/2019) . 02 Electronically signed: . Elliott Barroso MD, Pathologist NPI- [id number] . 01 Gross description: . A. PLEASE SEE GROSS DESCRIPTION UNDER FROZEN SECTION. . B. Received in formalin labeled "Day, Mario, left breast mass, stitch connolly short superior long lateral" is an oriented breast lumpectomy specimen weighing 36 g and measuring 6.7 cm from superior to inferior, 5.8 cm from medial to lateral, and 2.7 cm from anterior to posterior. The anterior aspect displays an ellipse of ansari-white skin measuring 4.5 x 0.8 x 0.3 cm. The specimen is inked as follows: Superior-red, inferior-blue, anterior-green, posterior-black, lateral-orange, medial-yellow. The specimen is serially sectioned from superior to inferior into 14 slices. Present within slices 6-10 is a ansari-white stellate mass measuring 2.5 x 2.3 x 2.3 cm. The mass is located to the margins as follows: 2.7 cm to superior, 2.2 cm to inferior, 0.1 cm to anterior, 2.6 cm to lateral, 1.1 cm to medial, and 0.4 cm to posterior. The mass is located 0.5 cm from the skin surface. A biopsy clip is identified in slice 8. The uninvolved breast parenchyma is 50% yellow-ansari lobulated and 50% dense ansari-white and fibrous. Graduate Student Instructor sections are submitted as follows: . B1 entire slice 1, superior margin, perpendicular sections B2-B4 entire slice 6 B5-B7 entire slice 7 B8-10 entire slice 8 XE25-R26 entire slice 9 B14-B16 entire slice 10 B17 entire slice 14, inferior margin, perpendicular sections The specimen is removed from the patient at 1011 and is placed in formalin at 1109 on 11/11/2019. The specimen is removed from formalin at 2340 on 11/11/2019. . C. Received in formalin labeled "Mario Rashid, left axillary SLN #2, hot, [place] [address] PATHOLOGY RPT PROCEDURE Name: MARIO RASHID Room: [facility]#: [id number] Admission: 11/11/19 Date of : 51 Discharge: Report #: [id number] Path Case #: [id number] blue, max 500" is a 0.6 x 0.5 x 0.4 cm firm yellow-ansari lymph node. The specimen has possible tumor involvement. The specimen is serially sectioned and submitted entirely in cassette C1. . D. Received in formalin labeled "Mario Rashid, left axillary SLN #3, hot, blue, max 380" is a 1.8 x 1.5 x 0.8 cm pink-ansari lymph node. The specimen is sectioned to reveal a pink-ansari unremarkable cut surface. The specimen is submitted in cassette D1. . E. Received in formalin labeled with the patient's name and "left axilla, stitch connolly short superior, long lateral" is a resection of yellow-ansari lobulated soft tissue measuring 8.5 x 4.3 x 1.8 cm. The specimen is palpated to reveal multiple yellow-ansari lymph nodes ranging from 0.2-1.0 cm in greatest dimension. The specimen is submitted entirely as follows: E1-E2 multiple lymph nodes in each cassette E3-E5 one lymph node in each cassette, serially sectioned E6-E9 remaining fibroadipose tissue submitted entirely ([facility]; 11/11/2019) [facility] 11/15/2019 1055 Local . 02 Pathologist provided ICD-10: C77.3, C50.912 . 02 CPT . 335266, 095099, 029097, 916872, 365348, M12191 Specimen Comment: A courtesy copy of this report has been sent to [phone] Specimen Comment: [phone], Specimen Comment: Report sent to ,DR MORGAN / DR KHALIL Performed at: [address] [id number] [facility] [address], [place], [place] [id number] MD Messi Hodges MD Phone: [phone] Performed at: 02 [facility] [address], [place], [place] [id number] MD Elliott Barroso MD Phone: [phone]
== END | disposition home or self-care (01) ==
LOC: M.SUR 06:45 → EDSTATUS 10:30 → M.NUC 10:30
PROVIDERS: Surgery
DX: C50.912 Malignant neoplasm of unspecified site of left female breast (principal); C77.3 Secondary and unspecified malignant neoplasm of axilla and upper limb lymph nodes; Z98.890 Other specified postprocedural states; Z88.8 Allergy status to other drugs, medicaments and biological substances; Z79.899 Other long term (current) drug therapy

== ENCOUNTER → 2019-12-16 | Outpatient (CLI) | payer MEDICARE, MEDICAID | LOC: M.MRI 13:20 | DX: M47.812 Spondylosis without myelopathy or radiculopathy, cervical region (principal); M48.02 Spinal stenosis, cervical region; M43.12 Spondylolisthesis, cervical region; M50.222 Other cervical disc displacement at C5-C6 level; C50.411 Malignant neoplasm of upper-outer quadrant of right female breast; Z17.0 Estrogen receptor positive status [ER+] ==